=== PATIENT | female | born 1995 | race Caucasian/White ===

== ENCOUNTER 2017-10-22 00:45 | Inpatient (IN) | payer OTHER ==
[~2017-10-22] VITALS: Ht 160 cm; Wt 50.0 kg
[~2017-10-22 00:45] MED LIST: CEPH500 PO; CIPR500 PO; CLON.5 PO; CLON1 PO; ESCI5 PO; HYDACE5 PO; IBUP600 PO; IBUP800 PO; Indomethacin50 MG PO; MEDR150I IM; METERG.2 PO; MULVITMINE PO; Macrobid 100 M100 MG PO; NAPR500 PO; Naprosyn500 MG PO; OXYACE5T PO; PROM25 PO; Percocet 5-3251 EACH PO; RXHYDACE PO; RXOXYACE PO; RXPROM25 PO; SULTRIDS PO; TRAM50 PO; Ultram50 MG PO; Verotin-Gr Cap1 EACH PO; Zofran Odt4 MG PO
[2017-10-22 01:16] LABS: BASOPHILS ABSOLUTE AUTO 0.03 K/mm3 (0.00-0.23); BASOPHILS PERCENT AUTO 0 % (0-2); EOSINOPHILS ABSOLUTE AUTO 0.11 K/mm3 (0.00-0.68); EOSINOPHILS PERCENT AUTO 1 % (0-6); Hematocrit 36.4 % (33.0-51.0); Hemoglobin 12.3 g/dL (11.5-16.0); IMMATURE GRAN ABSOLUTE AUTO 0.11 K/mm3 (0.00-0.10); IMMATURE GRAN PERCENT AUTO 1 % (0-1); LYMPHOCYTES ABSOLUTE AUTO 2.08 K/mm3 (0.84-5.20); LYMPHOCYTES PERCENT AUTO 13 % (21-46); MONOCYTES ABSOLUTE AUTO 1.08 K/mm3 (0.16-1.47); MONOCYTES PERCENT AUTO 7 % (4-13); Mean Corpuscular HGB 31.5 pg (26.0-34.0); Mean Corpuscular HGB Conc 33.8 g/dL (31.5-36.5); Mean Corpuscular Volume 93 fL (80-100); Mean Platelet Volume 9.9 fL (9.1-12.4); NEUTROPHILS ABSOLUTE AUTO 13.22 K/mm3 (1.96-9.15); NEUTROPHILS PERCENT AUTO 79 % (41-73); Platelet Count 260 K/mm3 (150-400); RDW Coefficient Variation 14.5 % (11.7-14.2); RDW Standard Deviation 49.1 fL (35.1-46.3); Red Blood Cell Count 3.91 M/mm3 (3.80-5.20); White Blood Cell Count 16.63 K/mm3 (4.00-11.30)
[2017-10-23 06:19] LABS: BASOPHILS ABSOLUTE AUTO 0.02 K/mm3 (0.00-0.23); BASOPHILS PERCENT AUTO 0 % (0-2); EOSINOPHILS ABSOLUTE AUTO 0.19 K/mm3 (0.00-0.68); EOSINOPHILS PERCENT AUTO 2 % (0-6); Hematocrit 34.8 % (33.0-51.0); Hemoglobin 11.7 g/dL (11.5-16.0); IMMATURE GRAN ABSOLUTE AUTO 0.09 K/mm3 (0.00-0.10); IMMATURE GRAN PERCENT AUTO 1 % (0-1); LYMPHOCYTES PERCENT AUTO 18 % (21-46); MONOCYTES ABSOLUTE AUTO 1.06 K/mm3 (0.16-1.47); MONOCYTES PERCENT AUTO 8 % (4-13); Mean Corpuscular HGB 31.5 pg (26.0-34.0); Mean Corpuscular HGB Conc 33.6 g/dL (31.5-36.5); Mean Corpuscular Volume 94 fL (80-100); Mean Platelet Volume 9.9 fL (9.1-12.4); NEUTROPHILS ABSOLUTE AUTO 9.41 K/mm3 (1.96-9.15); NEUTROPHILS PERCENT AUTO 72 % (41-73); Platelet Count 217 K/mm3 (150-400); RDW Coefficient Variation 14.6 % (11.7-14.2); RDW Standard Deviation 50.2 fL (35.1-46.3); Red Blood Cell Count 3.72 M/mm3 (3.80-5.20); White Blood Cell Count 13.07 K/mm3 (4.00-11.30)
== END 2017-10-23 23:43 | disposition home or self-care (01) | DRG 775 ==
LOC: OBS 00:45 → BC 01:01
PROVIDERS: Obstetrics & Gynecology
PROC: 10E0XZZ Delivery of Products of Conception, External Approach (ICD-10-PCS; principal; 2017-10-22)
DX: O48.0 Post-term pregnancy (principal); Z37.0 Single live birth; Z3A.41 41 weeks gestation of pregnancy
CPT/HCPCS: 36415; 85025; J0290; J1885; J2210; J2590; J3010; J7120

== ENCOUNTER 2018-07-17 17:44 | Emergency (ER) | payer OTHER ==
[~2018-07-17] VITALS: Ht 160 cm; Wt 49.9 kg
== END 2018-07-17 19:33 | disposition home or self-care (01) ==
LOC: ER 17:44
DX: M54.5 Low back pain (principal); F17.210 Nicotine dependence, cigarettes, uncomplicated
CPT/HCPCS: 72100; 99283-25

== ENCOUNTER 2019-01-25 18:19 | Emergency (ER) | payer OTHER ==
[~2019-01-25] VITALS: Ht 160 cm; Wt 54.4 kg
[~2019-01-25 18:19] MED LIST changes: +CEPH500
[2019-01-25 19:15] LABS: BASOPHILS ABSOLUTE AUTO 0.04 K/mm3 (0.00-0.23); BASOPHILS PERCENT AUTO 0 % (0-2); EOSINOPHILS ABSOLUTE AUTO 0.24 K/mm3 (0.00-0.68); EOSINOPHILS PERCENT AUTO 2 % (0-6); Hematocrit 39.6 % (33.0-51.0); Hemoglobin 13.3 g/dL (11.5-16.0); IMMATURE GRAN ABSOLUTE AUTO 0.04 K/mm3 (0.00-0.10); IMMATURE GRAN PERCENT AUTO 0 % (0-1); LYMPHOCYTES ABSOLUTE AUTO 2.52 K/mm3 (0.84-5.20); LYMPHOCYTES PERCENT AUTO 18 % (21-46); MONOCYTES ABSOLUTE AUTO 0.85 K/mm3 (0.16-1.47); MONOCYTES PERCENT AUTO 6 % (4-13); Mean Corpuscular HGB Conc 33.6 g/dL (31.5-36.5); Mean Corpuscular Volume 95 fL (80-100); Mean Platelet Volume 9.8 fL (9.1-12.4); NEUTROPHILS ABSOLUTE AUTO 10.43 K/mm3 (1.96-9.15); NEUTROPHILS PERCENT AUTO 74 % (41-73); Platelet Count 253 K/mm3 (150-400); RDW Coefficient Variation 13.4 % (11.7-14.2); RDW Standard Deviation 46.6 fL (35.1-46.3); Red Blood Cell Count 4.16 M/mm3 (3.80-5.20); White Blood Cell Count 14.12 K/mm3 (4.00-11.30)
[2019-01-25 19:40] LABS: Source, Urine Clean Catch
[2019-01-25 19:43] LABS: Bilirubin, Urine Neg (Neg); Blood, Urine 2+ (Neg); Glucose Qualitative, Urine Neg (Neg); Ketones, Urine Neg (Neg); Leukocyte Esterase, Urine 1+ (Neg); Nitrite, Urine Neg (Neg); Protein, Urine Neg (Neg); Urobilinogen, Urine NORM (Normal); pH, Urine 6.5 (5.0-8.0)
[2019-01-25 19:51] LABS: Appearance, Urine Clear (Clear); Color, Urine Yellow (P-Yellow)
[2019-01-25 19:52] LABS: Bacteria Mod /hpf; Red Blood Cells, Urine 0-2 /hpf (0-2); Squamous Epithelial Cells Few /hpf (Few)
[2019-01-25 20:13] LABS: Alanine Aminotransfer (ALT/SGP 29 U/L (12-78); Albumin/Globulin Ratio 1.1 (0.8-1.8); Alk Phos 59 U/L (50-136); Anion Gap 6 mmol/L (6-16); Aspartate Aminotrans (AST/SGOT 17 U/L (12-37); Bilirubin, Total 0.4 mg/dL (0.1-1.0); Blood Urea Nitrogen 12 mg/dL (8-24); Bun/Creatinine Ratio 19.3 (12.0-20.0); CO2, Blood 24 mmol/L (21-32); Calcium, Blood 8.8 mg/dL (8.5-10.1); Chloride, Blood 105 mmol/L (98-108); Creatinine, Blood 0.62 mg/dL (0.40-1.00); Globulin, Blood 3.6 g/dL (2.2-4.0); Glomerular Filtration Rate >60 (60-); Glucose, Blood 78 mg/dL (70-99); Potassium, Blood 3.6 mmol/L (3.5-5.5); Sodium, Blood 135 mmol/L (136-145); Total Protein, Blood 7.6 g/dL (6.4-8.2)
[2019-01-25] MEDS ORDERED: Verotin-Gr Cap1 EACH PO (21:44)
[2019-01-25] MEDS ORDERED: CEPH500 PO (21:48)
== END 2019-01-25 22:01 | disposition home or self-care (01) ==
LOC: ER 18:19
PROVIDERS: Physician Assistant
DX: O20.9 Hemorrhage in early pregnancy, unspecified (principal); O99.89 Other specified diseases and conditions complicating pregnancy, childbirth and the puerperium; R82.71 Bacteriuria; O99.331 Smoking (tobacco) complicating pregnancy, first trimester; F17.210 Nicotine dependence, cigarettes, uncomplicated; O99.340 Other mental disorders complicating pregnancy, unspecified trimester; F30.9 Manic episode, unspecified; Z3A.10 10 weeks gestation of pregnancy
CPT/HCPCS: 36415; 76801; 80053; 81001; 85025; 86900; 86901; 87077; 87086; 87186; 99284-25

== ENCOUNTER 2019-05-11 01:29 | Inpatient (IN) | payer OTHER ==
[~2019-05-11] VITALS: Ht 160 cm; Wt 64.5 kg
[2019-05-11 02:04] LABS: BASOPHILS ABSOLUTE AUTO 0.04 K/mm3 (0.00-0.23); BASOPHILS PERCENT AUTO 0 % (0-2); EOSINOPHILS ABSOLUTE AUTO 0.15 K/mm3 (0.00-0.68); EOSINOPHILS PERCENT AUTO 1 % (0-6); Hematocrit 37.8 % (33.0-51.0); Hemoglobin 12.9 g/dL (11.5-16.0); IMMATURE GRAN ABSOLUTE AUTO 0.05 K/mm3 (0.00-0.10); IMMATURE GRAN PERCENT AUTO 0 % (0-1); LYMPHOCYTES ABSOLUTE AUTO 3.13 K/mm3 (0.84-5.20); LYMPHOCYTES PERCENT AUTO 20 % (21-46); MONOCYTES ABSOLUTE AUTO 0.81 K/mm3 (0.16-1.47); MONOCYTES PERCENT AUTO 5 % (4-13); Mean Corpuscular HGB 33.3 pg (26.0-34.0); Mean Corpuscular HGB Conc 34.1 g/dL (31.5-36.5); Mean Corpuscular Volume 98 fL (80-100); NEUTROPHILS ABSOLUTE AUTO 11.49 K/mm3 (1.96-9.15); NEUTROPHILS PERCENT AUTO 73 % (41-73); Platelet Count 230 K/mm3 (150-400); RDW Coefficient Variation 12.8 % (11.7-14.2); RDW Standard Deviation 45.4 fL (35.1-46.3); Red Blood Cell Count 3.87 M/mm3 (3.80-5.20); White Blood Cell Count 15.67 K/mm3 (4.00-11.30)
[2019-05-11 02:22] LABS: Alanine Aminotransfer (ALT/SGP 21 U/L (12-78); Albumin, Blood 3.3 g/dL (3.4-5.0); Albumin/Globulin Ratio 0.8 (0.8-1.8); Alk Phos 77 U/L (50-136); Anion Gap 7 mmol/L (6-16); Aspartate Aminotrans (AST/SGOT 19 U/L (12-37); Bilirubin, Total 0.3 mg/dL (0.1-1.0); Blood Urea Nitrogen 15 mg/dL (8-24); Bun/Creatinine Ratio 25.7 (12.0-20.0); CO2, Blood 24 mmol/L (21-32); Calcium, Blood 8.2 mg/dL (8.5-10.1); Chloride, Blood 107 mmol/L (98-108); Creatinine, Blood 0.58 mg/dL (0.40-1.00); Globulin, Blood 3.9 g/dL (2.2-4.0); Glomerular Filtration Rate >60 (60-); Glucose, Blood 91 mg/dL (70-99); Potassium, Blood 3.4 mmol/L (3.5-5.5); Sodium, Blood 138 mmol/L (136-145); Total Protein, Blood 7.2 g/dL (6.4-8.2)
[2019-05-11 04:04] LABS: Source, Urine Clean Catch
[2019-05-11 04:07] LABS: Bilirubin, Urine Neg (Neg); Blood, Urine 2+ (Neg); Glucose Qualitative, Urine Neg (Neg); Ketones, Urine 2+ (Neg); Leukocyte Esterase, Urine 3+ (Neg); Nitrite, Urine Neg (Neg); Protein, Urine 2+ (Neg); Urobilinogen, Urine NORM (Normal); pH, Urine 6.5 (5.0-8.0)
[2019-05-11 04:08] LABS: Appearance, Urine Hazy (Clear); Color, Urine Yellow (P-Yellow)
[2019-05-11 04:16] LABS: Bacteria Mod /hpf; Squamous Epithelial Cells Mod /hpf (Few); White Blood Cells, Urine TNTC /hpf (0-5)
[2019-05-11 04:17] LABS: Calcium Oxalate Crystals Rare /hpf
--- NOTE | 2019-05-11 11:54 | NUR ---
PT REQUESTS TO GO OUTSIDE TO SMOKE. RN EXPLAINED TO PT THAT SHE IS ON A OIL FIELD LABORER AND SHE IS ON A NICOTINE PATCH. 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 RN TOLD PT THAT SHE WOULD TALK WITH PROVIDER. RN SPOKE WITH CLINICAL COORDINATER, PRIVATE BRANCH EXCHANGE REPAIRER AND PROVIDER. ALL OK'D RN TO HAVE PT FILLOUT AMA FORM. AMA FORM SIGNED BY RN AND PT, OIL FIELD LABORER AND LR STOPPED. PT OUTSIDE TO SMOKE AND RETURNED SHORTLY AFTERWARDS.
--- NOTE | 2019-05-11 18:00 | NUR ---
PATIENT IN AND OUT OF ROOM TO GO OUTSIDE SEVERAL TIMES TODAY TO GO SMOKE. RN CONTINUES TO EXPLAIN TO PT THROUGHOUT THE DAY ABOUT THE IMPORTANCE OF REMAINING CONNECTED TO HER TERRITORY BUSINESS MANAGER TO CONTINUE TO BE ABLE TO USE HER BUTTON TO HER TERRITORY BUSINESS MANAGER TO TREAT PAIN. PT CONTINIES TO RATE PAIN 7-10/10 ALL DAY. PT REPORTS THAT SHE GET MUCH RELIEF WITH TERRITORY BUSINESS MANAGER. RN HAD TO CONTINUALLY TELL PT TO USE HER BUTTON IF SHE WAS HAVING PAIN TO HELP DECREASE PAIN LEVEL. RN REPEATEDLY EXPLAINED TO PT IMPORTANCE OF REMAINING CONNECTED TO MEDICATIONS TO KEEP FLUIDS PUSHING THROUGH AND TO HELP KEEP PAIN LEVELS LOW.
[2019-05-12 05:47] LABS: BASOPHILS ABSOLUTE AUTO 0.02 K/mm3 (0.00-0.23); BASOPHILS PERCENT AUTO 0 % (0-2); EOSINOPHILS ABSOLUTE AUTO 0.02 K/mm3 (0.00-0.68); EOSINOPHILS PERCENT AUTO 0 % (0-6); Hematocrit 35.5 % (33.0-51.0); IMMATURE GRAN ABSOLUTE AUTO 0.05 K/mm3 (0.00-0.10); IMMATURE GRAN PERCENT AUTO 0 % (0-1); LYMPHOCYTES ABSOLUTE AUTO 1.17 K/mm3 (0.84-5.20); LYMPHOCYTES PERCENT AUTO 9 % (21-46); MONOCYTES PERCENT AUTO 6 % (4-13); Mean Corpuscular HGB 33.7 pg (26.0-34.0); Mean Corpuscular HGB Conc 33.8 g/dL (31.5-36.5); Mean Corpuscular Volume 100 fL (80-100); Mean Platelet Volume 9.7 fL (9.1-12.4); NEUTROPHILS ABSOLUTE AUTO 10.78 K/mm3 (1.96-9.15); NEUTROPHILS PERCENT AUTO 84 % (41-73); Platelet Count 216 K/mm3 (150-400); RDW Coefficient Variation 12.8 % (11.7-14.2); RDW Standard Deviation 46.8 fL (35.1-46.3); Red Blood Cell Count 3.56 M/mm3 (3.80-5.20); White Blood Cell Count 12.84 K/mm3 (4.00-11.30)
[2019-05-12 06:09] LABS: Alanine Aminotransfer (ALT/SGP 16 U/L (12-78); Albumin, Blood 2.8 g/dL (3.4-5.0); Albumin/Globulin Ratio 0.8 (0.8-1.8); Alk Phos 72 U/L (50-136); Anion Gap 5 mmol/L (6-16); Aspartate Aminotrans (AST/SGOT 16 U/L (12-37); Bilirubin, Total 0.3 mg/dL (0.1-1.0); Blood Urea Nitrogen 15 mg/dL (8-24); Bun/Creatinine Ratio 16.1 (12.0-20.0); CO2, Blood 28 mmol/L (21-32); Calcium, Blood 8.4 mg/dL (8.5-10.1); Chloride, Blood 105 mmol/L (98-108); Creatinine, Blood 0.93 mg/dL (0.40-1.00); Globulin, Blood 3.7 g/dL (2.2-4.0); Glomerular Filtration Rate >60 (60-); Glucose, Blood 103 mg/dL (70-99); Potassium, Blood 3.6 mmol/L (3.5-5.5); Sodium, Blood 138 mmol/L (136-145); Total Protein, Blood 6.5 g/dL (6.4-8.2)
--- NOTE | 2019-05-12 06:32 | NUR ---
LAWN MOWER SETTINGS CHANGED PER DR. ROMAN W/ [place], MANJINDER TO CONFIRM. ROXICODONE ALSO GIVEN PER DR. ROMAN FOR BREAKTHROUGH. AFTER ADMINISTRATION PT IMMEDIATLY ASKED TO GO OUT AND SMOKE. SHE WAS ENCOURAGED IT WOULD BE SAFER TO STAY IN HER ROOM AT THIS TIME. PT ADAMANT ON GOING OUT TO SMOKE AGAIN.
--- NOTE | 2019-05-13 01:23 | NUR ---
PT OXYGEN DROPPING INTO THE 80'S WHEN SOUND ASLEEP. PT IS EASILY AROUSABLE FROM SLEEP AND FOLLOWS DIRECTIONS. 1L OXYGEN VIA NC APPLIED WHILE PT IS SLEEPING.
--- NOTE | 2019-05-13 07:45 | NUR ---
LESIA MEZA, VERIFIED WITH CHARGE MANJINDER MENEZES.
--- NOTE | 2019-05-13 08:07 | NUR ---
PT REQUESTING TO GO OUT AND SMOKE. FLUIDS DISCONNECTED.
--- NOTE | 2019-05-13 08:29 | NUR ---
PT BACK ON ROOM.
--- NOTE | 2019-05-13 09:39 | NUR ---
pt requesting to go out and smoke.
--- NOTE | 2019-05-13 10:01 | NUR ---
PT BACK IN ROOM.
--- NOTE | 2019-05-13 10:30 | NUR ---
LATE ENTRY: PT UPSET ABOUT BEING TOLD THAT SHE COULD NOT GO OUTSIDE TO SMOKE AFTER DILAUDID SCREW DRIVER OPERATOR WAS STARTED. PT ROCKING BACK AND FOURTH YELLING AT RN TELLING RN "I AM HAVE MANIC ANXIETY AND DEPRESSION" "I NEED TO SMOKE TO HELP WITH MY ANXIETY". RN EXPLAINED WHY WE DO NOT LIKE TO LET PTS GO OUTSIDE AFTER STARTING SCREW DRIVER OPERATOR. RN SPOKE WITH BOILER ATTENDANT AND CLINICAL COORDINATOR. AMA FORM WAS SIGNED AND PT ALLOWED TO GO OUTSIDE.
--- NOTE | 2019-05-13 10:34 | NUR ---
PT REQUESTED TO GO OUTSIDE. LINEN CHANGED AND HOUSEKEEPING IN ROOM CLEANING FLOOR TO REMOVE ALL BARK MULCH. REQUESTING PT WEAR SHOES OUTSIDE BUT IF REFUSING TO WEAR THEM, TRACKING IN BARK MULCH EACH TIME SHE GOES IN AND OUT TO SMOKE.
[2019-05-13 15:49] LABS: Alanine Aminotransfer (ALT/SGP 14 U/L (12-78); Albumin, Blood 2.8 g/dL (3.4-5.0); Albumin/Globulin Ratio 0.8 (0.8-1.8); Alk Phos 72 U/L (50-136); Anion Gap 2 mmol/L (6-16); Aspartate Aminotrans (AST/SGOT 19 U/L (12-37); Bilirubin, Total 0.2 mg/dL (0.1-1.0); Blood Urea Nitrogen 8 mg/dL (8-24); Bun/Creatinine Ratio 11.4 (12.0-20.0); CO2, Blood 30 mmol/L (21-32); Calcium, Blood 8.9 mg/dL (8.5-10.1); Chloride, Blood 104 mmol/L (98-108); Globulin, Blood 3.7 g/dL (2.2-4.0); Glomerular Filtration Rate >60 (60-); Glucose, Blood 93 mg/dL (70-99); Potassium, Blood 3.6 mmol/L (3.5-5.5); Sodium, Blood 136 mmol/L (136-145); Total Protein, Blood 6.5 g/dL (6.4-8.2)
--- NOTE | 2019-05-13 18:00 | NUR ---
PT CONTINUES TO GO IN AND OUT TO SMOKE. RN CONTINUES TO EXPLAIN THE IMPORTNACE OF STAYING CONNECTED TO IV FLUIDS AND PAIN MEDICATION. WONDERLY ROUNDED ON PT TODAY AT 1100. NO MANAGER E LEARNING PUMP SETTINGS CHANGED BUT OKAY'D FOR ORAL PAIN MEDICATION. PT CONTINUES TO RATE HER PAIN -05/17. PT REQUESTS ZOFRAN WITH HER PO PAIN MEDICATION TO HELP HER KEEP FROM PUKING. PT PUKING CONTINUOUSLY ON 05-11-19, TODAY PT DOESNT SEEM TO BE VOMITTING MUCH. TODAY PT SPOKE WITH HER SO ON THE PHONE, PT YELLING AT HIM ON THE PHONE. PT WAS CRYING AND TOLD RN THAT HER SO "JUST DOESNT UNDERSTAND HOW SENSETIVE I AM" CONTINUES TO STATE THAT "HE SAYS I AM INCONVENIENCING HIM BY BEING SICK"
[2019-05-14 05:29] LABS: BASOPHILS ABSOLUTE AUTO 0.02 K/mm3 (0.00-0.23); BASOPHILS PERCENT AUTO 0 % (0-2); EOSINOPHILS ABSOLUTE AUTO 0.16 K/mm3 (0.00-0.68); EOSINOPHILS PERCENT AUTO 2 % (0-6); Hematocrit 28.8 % (33.0-51.0); Hemoglobin 9.6 g/dL (11.5-16.0); IMMATURE GRAN ABSOLUTE AUTO 0.02 K/mm3 (0.00-0.10); IMMATURE GRAN PERCENT AUTO 0 % (0-1); LYMPHOCYTES PERCENT AUTO 25 % (21-46); MONOCYTES ABSOLUTE AUTO 0.56 K/mm3 (0.16-1.47); MONOCYTES PERCENT AUTO 8 % (4-13); Mean Corpuscular HGB 33.8 pg (26.0-34.0); Mean Corpuscular HGB Conc 33.3 g/dL (31.5-36.5); Mean Corpuscular Volume 101 fL (80-100); Mean Platelet Volume 9.9 fL (9.1-12.4); NEUTROPHILS ABSOLUTE AUTO 4.82 K/mm3 (1.96-9.15); NEUTROPHILS PERCENT AUTO 64 % (41-73); Platelet Count 185 K/mm3 (150-400); RDW Coefficient Variation 12.8 % (11.7-14.2); RDW Standard Deviation 47.8 fL (35.1-46.3); Red Blood Cell Count 2.84 M/mm3 (3.80-5.20); White Blood Cell Count 7.48 K/mm3 (4.00-11.30)
--- NOTE | 2019-05-14 13:15 | NUR ---
4720 SPOKE WITH CHRIS THE PATIENT ADVOCATE AFTER HER MEETING WITH EVANS. THE ADVOCATE STATES THAT SHE DIDN'T UNDERSTAND WHY THE NEW DOCTOR CHANGED ALL OF EVANS'S MEDICATIONS WHEN SHE HAD BEEN COMFORTABLE YESTERDAY (PER THE PATIENT). THE ADVOCATE STATED THAT THIS HAPPENS ALL THE TIME UPSTAIRS WHEN THEY CHANGE HOSPITALISTS AND THAT IT IS FRUSTRATING FOR THE PATIENT. CHRIS ASKED ME THE PROCESS OF WHETHER SHE SHOULD TALK TO DR KIMBROUGH OR IF I NORMALLY DO IT. I STATED THAT I WOULD TALK WITH DR KIMBROUGH ABOUT THE PATIENTS CONCERNS AND CHRIS STATED WHE WOULD BE AVAILABLE FOR THE REMAINDER OF THE DAY IF THE PATIENT NEEDED FURTHER SUPPORT
--- NOTE | 2019-05-14 14:20 | NUR ---
AROUND 1100 RN WAS ASKED BY CHARGE NURSE TO TRY AND RESTART PT IV. RN TRIED 3 TIMES TO START A IV WITH NO SUCCESS. DURING THIS TIME PT WAS CONVERSING WITH RN ABOUT HER DIS-SATISFACTION ABOUT HOW HER CARE HAS CHANGED. SHE WAS MAD THAT DOCTOR KIMBROUGH CAME IN AND CHANGED ALL THE MEDICATION THAT DR. ROMAN HAD HER ON. SHE STATED THAT HER PAIN IS SO BAD AND SHE DOESNT UNDERSTAND WHY DR ROMAN HAD HER ON ORAL AND IV PAIN MEDICATION AND NOW DR. KIMBROUGH HAS TAKEN THAT AWAY. RN STATED TO PT THAT THE REASON THAT HAPPENED IS THAT A PATIENT CANNOT GO HOME ON IV PAIN MEDICATION. SHE STATED TEARFUL AND WITH A RAISED VOICE THAT SHE DOESNT WANT TO GO HOME UNTIL THIS STONE IS PASSED AND SHE IS NO LONGER IN PAIN. SHE THEN TOLD THE RN THAT THE CHARGE NURSE WAS CALLING PT ADVOCATE FOR HER BECAUSE THAT IS WHAT HER MOTHER TOLD HER TO DO. RN TOLD HER THAT WAS GOOD BEACUSE THEY WOULD BE ABLE TO HELP DEFUSE THE SITIUATION AND HOPEFULLY FIND A SOLUTION. SHE THEN TOLD THE RN THAT SHE GOODLED DR. 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 RN STATES THAT TO HER KNOWLEGE DR. KIMBROUGH DOESNT HAVE LAWSUITS THAT SHE KNOWS OF AND HAS SEEN HER BE VERY COMPATENT IN HER FIELD OF WORK. PT STATED "THAN WHY IS SHE DOING THIS TO ME! SHE WANTS ME TO TAKE MEDICATION THAT WILL DILATE MY KIDNEYS AND HARM MY BABY!" RN STATES THAT SHE IS UNFAMILAR WITH HER CHART OR THE MEDICATIONS SCHEDULED BUT THAT PT ADVOCATE WILL HELP RESOLVE THESE PROBLEMS, AND THAT SOMETIMES CERTAIN PEOPLES (DOCTOR TO PATIENT) PERSONALITIES DONT MESH UP AND THAT HOPEFULLY THERE CAN BE A RESOLUTION FOUND IN THIS SITUATION AND WE WILL WORK BEHIND THE SENCES TO TRY TO FIND A RESOLUTION
--- NOTE | 2019-05-14 15:24 | NUR ---
0900: PT CONTINUES TO GO OUTSIDE TO SMOKE CONTINUOUSLY. RN AGAIN EXPLAINED THE IMPORTNACE OF CONTINUING TO STAY CONNECTED TO IV FLUIDS AND PAIN MEDICATIONS 0940: DR KIMBROUGH AT BEDSIDE. EXPLAINING THE PLAN FOR THE DAY WITH MEDICATIONS AND THAT THE BILLING ADJUDICATOR WILL BE STOPPED AND THAT SHE WILL HAVE US CONTINUE WITH THE ROXICODONE. DR KIMBROUGH ADDED ADDITION PAIN MEDICATIONS. SEE EMAR. PT VERY TEARFUL AND UPSET ABOUT "ALL OF HER MEDICATIONS BEING CHANGED" 1000: RN REMOVING BILLING ADJUDICATOR AND BAG. PT STATES THAT SHE "GOOGDLED DR KIMBROUGH AND SHE IS RESPONSIBLE FOR KILLING BABIES AND HAS A LOT OF LAWSUITS AGAINST HER" PT CONTINIES TO STATE "I SPOKE WITH MY MOM AND SHE TOLD ME TO CALL THE PT ADVOCATE". RN EXPLAINED TO PT THAT DR KIMBROUGH IS GOOD AND COMPETENT PHYSICIAN, RN CONTINUES TO TELL HER THAT SHE WAS UNAWARE OF ANY LAWSIUTS AGAINST DR KIMBROUGH AND THAT SHE CANNOT BELIEVE EVERYTHING SHE READS ON THE INTERNET AND THAT JUST BECAUSE THAT IS SOMEONES INTERPRETATION OF WHAT HAPPENED DOES NOT MEAN IT IS FACT OF AN INCIDENT. PT CRYING AND GOES OUTSIDE TO SMOKE. 1230: PT CALLED THE PT ADVOCATE. PT STATES THAT THE PT ADVOCATE CAME TO SEE HER IN HER ROOM. PT STATES THAT THE PATIENT ADVOCATE, CHRIS ALCANTAR, TOLD HER THAT "IT WASN'T RIGHT FOR DR KIMBROUGH TO STOP ALL OF YOUR MEDICATIONS IF THAT WAS WORKING", SHE ALSO STATES THAT THE PATIENT ADVOCATE TOLD HER THAT RIRI DUNBAR SAID SHE WOULD SPEAK WITH DR. KIMBROUGH AND "WOULDN'T LET HER TALK TO DR KIMBROUGH'. DR KIMBROUGH CALLED TO PTS ROOM TO SPEAK WITH PT. PT TALKING LOWDLY AND CRYING. PT STATES TO DR KIMBROUGH "I'VE BEEN TOLD BY NURSES AND OTHER PEOPLE THAT I NEED TO BE VERY FIRM WITH YOU". RN ASKED WHAT NURSES AND THE PT STATES SHE "PROMISED THE NURSES SHE WOULDN'T TELL ANYONE WHO SAID THAT". PT CONTINUES TO LOUDLY CRY AND TALK TO DR KIMBROUGH AND STATES "I WAS FINE AND FEELING BETTER UNTIL I MET YOU". DR KIMBROUGH EXPLAINS TO THE PT THAT THE ONLY THING THAT SHE CHANGED WITH HER MEDICATIONS WAS TURNING OFF THE BILLING ADJUDICATOR. WHEN PT QUESTIONS WHY THE FLUIDS WERE DECREASED RN EXPLAINED TO HER THAT DR ROMAN ORDERED THAT NOT DR KIMBROUGH. PT CONTINUES TO BE VERY TEARFUL. 1330: PT OFFERED FLOWMAX TO HELP OPEN THE URETER TO HELP KIDNEY STONE PASS. PT DECLINES MEDICATION. STATES "I DONT WANT TO HURT THE BABY, I AM GOING TO CALL DR ROMAN AND I DONT WANT TO TAKE THAT MEDICATION UNTIL I HAVE TALKED TO HIM BECAUSE HE TOLD ME THAT WASNT OK TO TAKE WHILE ". PT CONTINUES TO CRY AND STATES "DR ROMAN TOLD ME I WOULD BE ON IV AND ORAL MEDICATIONS FOR 7 DAYS, I DONT UNDERSTAND WHY SHE (DR KIMBROUGH) IS CHANGING EVERYTHING". RN AGAIN EXPLAINED SHE ONLY STOPPED HER BILLING ADJUDICATOR AND ADDED A COUPLE OTHER MEDICATIONS, ORAL PAIN MEDICATIONS REMAIN THE SAME. 1400: ULTRASOUND AT BEDSIDE 1530: CHRIS SERRANO, PATIENT ADVOCATE CAME TO TALK WITH RN, RN EXPLAINED TO HER TO THAT THE PT REPORTS SHE TOLD THEM THAT THE MEDICATIONS SHOULD HAVE NOT BEEN CHANGED IF THAT WAS WORKDING FOR HER. PATIENT ALANIS DENIES SAYING THAT. STATES SHE WILL COME BACK AND TALK WITH PT TOMORROW AT SOME POINT.
--- NOTE | 2019-05-14 19:25 | NUR ---
report from erasmo lopez rn. pt not in room at this time.
--- NOTE | 2019-05-14 20:07 | NUR ---
pt tearful in room and states she was due for her medications at 1815 but she was trying to keep herself preoccupied because she knows that we are busy delivering babies. pt went outside to smoke and was not in room initially. as soon as she came back from smoking she was frantic and saying that she needed her iv pain medication, oral pain medication, nausea medicine and anxiety medicine. 10 mg oxycodone given with zofran as well as vistaril, pt complained that I did not give her her IV dilaudid, however I told her that we would evaluate how the oral pain medication worked with her anxiety medication. I stated that I did not want to bottom her out and that the iv dilaudid along with the other medication together can make her very sleepy. She became very irritated and said she would give it 15 minutes for it to kick in. I then told her that I would like to give her and her baby safe care and that I would like to keep her comfortable but keep her safe at the same time. Pt tearful and thanks me, however very defensive.
--- NOTE | 2019-05-14 20:32 | NUR ---
Pt out to smoke and get "her baby daddy." this RN advised pt to stay in bed to try to sleep and stay down however she states that she would when she gets back and "thats what the anxiety medication is for and how I got behind on my medication the night before because no one woke her up to give her pain medication." Pt states she needs her IV pain medication and oral medication on time so she does not have any pain. I had a conversation with her that until the stone passes the patient needs to have a realistic idea of what her pain will be and that we would like her to be comfortable but that she will not be pain FREE. Pt states she understands and has a realstic idea of what it should be and that she should have her continous medication like Dr. Matute had prescribed. She states she is very unahppy with Dr. Maher care and she has heard nothing but bad things. I told her that Dr. Rasmussen is a very competent provider and provides great care. Pt laughs and states " well thats good to hear because multiple of my friends have lawsuits against her."
--- NOTE | 2019-05-14 20:56 | NUR ---
PT BACK IN ROOM, RECONNECTED TO FLUIDS. ADVISED TO TRY TO GET SOME SLEEP. YOGURT, GINGERALE AND HOT WATER GIVEN FOR TEA.
--- NOTE | 2019-05-14 21:59 | NUR ---
pt out to smoke and see her . pt saline locked.
--- NOTE | 2019-05-14 23:20 | NUR ---
2350: pt back to room with . reconnected to iv fluids.
--- NOTE | 2019-05-14 23:40 | NUR ---
1930: fhts in 180s, pt states she just smoked, will doppler again in a little while to see if babys heart rate has come down.
--- NOTE | 2019-05-14 23:41 | NUR ---
1 liter of oxygen applied via nc due to pt's oxygen saturation level at 92%. pt states she is going to try to go to sleep.
--- NOTE | 2019-05-15 05:31 | NUR ---
Pt has not called and is sound asleep snoring.
--- NOTE | 2019-05-15 06:28 | NUR ---
0620- pt out to smoke after being advised not to after giving oxycodone and dilaudid.
--- NOTE | 2019-05-15 07:39 | NUR ---
pt in shower, denied needing any towels. changed her bed, emptied trash and linen. pt back from smoking at 0720, iv sl wrapped for shower. at 0739 asked pt thru door to notify rn when pt ready for vs and listening to baby. breakfast at bedside
--- NOTE | 2019-05-15 08:15 | NUR ---
pt was given a paper to get her scripts filled at [facility] from house painting instructor. pt doesnt have insurance and has no way to pay for her scripts. pt was given scripts for keflex, zofran, vistril, and percocet, house painting instructor reports they dont fill pain meds, but put it on there due to pt having documented kidney stone and pain. pt is working on getting ahold of family for a ride home. if unable to will get pt a taxi ride.
[2019-05-15 08:53] LABS: BASOPHILS ABSOLUTE AUTO 0.02 K/mm3 (0.00-0.23); BASOPHILS PERCENT AUTO 0 % (0-2); EOSINOPHILS ABSOLUTE AUTO 0.13 K/mm3 (0.00-0.68); EOSINOPHILS PERCENT AUTO 1 % (0-6); Hematocrit 32.4 % (33.0-51.0); Hemoglobin 10.8 g/dL (11.5-16.0); IMMATURE GRAN ABSOLUTE AUTO 0.03 K/mm3 (0.00-0.10); IMMATURE GRAN PERCENT AUTO 0 % (0-1); LYMPHOCYTES ABSOLUTE AUTO 1.52 K/mm3 (0.84-5.20); LYMPHOCYTES PERCENT AUTO 17 % (21-46); MONOCYTES ABSOLUTE AUTO 0.61 K/mm3 (0.16-1.47); MONOCYTES PERCENT AUTO 7 % (4-13); Mean Corpuscular HGB 33.3 pg (26.0-34.0); Mean Corpuscular HGB Conc 33.3 g/dL (31.5-36.5); Mean Corpuscular Volume 100 fL (80-100); Mean Platelet Volume 10.2 fL (9.1-12.4); NEUTROPHILS ABSOLUTE AUTO 6.91 K/mm3 (1.96-9.15); NEUTROPHILS PERCENT AUTO 75 % (41-73); Platelet Count 231 K/mm3 (150-400); RDW Coefficient Variation 12.6 % (11.7-14.2); RDW Standard Deviation 46.7 fL (35.1-46.3); Red Blood Cell Count 3.24 M/mm3 (3.80-5.20); White Blood Cell Count 9.22 K/mm3 (4.00-11.30)
[2019-05-15] MEDS ORDERED: Percocet 5-3251 EACH PO (09:16)
[2019-05-15] MEDS ORDERED: ONDA4ODT MM (09:17)
[2019-05-15] MEDS ORDERED: HYDPAM25 PO (09:17)
--- NOTE | 2019-05-15 09:23 | NUR ---
DISCHARGE ORDER DIDNT COME THRU TO [facility], CALLED DR KIMBROUGH TO VERIFY THAT PT WAS TO BE DISCHARGED, GOT A TELEPHONE ORDER,
--- NOTE | 2019-05-15 09:53 | NUR ---
PATIENT CAME TO DESK ASKED FOR A COUPON FOR THE [place]FET[place]. PATIENT IS NOW HEADING OVER TO THE [place]
--- NOTE | 2019-05-15 10:12 | NUR ---
1012 DC TEACHING DONE OUT BY [employer]. PT VERBALIZED OK TO DO DISCHARGE TEACHING THERE. VERBALIZED UNDERSTANDING, QUESTIONS ANSWERED, PT HAS [employer] NUMBER TO CALL WITH QUESTIONS. AT 1010 WENT TO PT ROOM TO FIND OUT HOW HER RIDE SITUATION WAS GOING, PT WANSNT IN ROOM AND HER BAGS WERE GONE. FOUND PT OUT BY [employer]. PT THOUGHT HER TEACHING WAS DONE AND HER RIDE WAS ON THE WAY. REPORTS SHE GETS BETTER SERVICE IN THAT AREA FOR HER PAD TO MAKE PHONECALLS THAN IN HER ROOM. OFFERED FOR HER TO GO BACK TO ROOM AND SHE DECLINED, PT REPORTS TRYING TO CALL DR ROMAN OFFICE TO MAKE AN APPOINTMENT. SHE DOESNT LIKE DR KIMBROUGH. ENCOURAGED TO FOLLOW UP IN 1-2 WEEKS WITH AN OB DOCTOR OR ADMINISTRATIVE REPRESENTATIVE
[2019-05-15 10:21] LABS: Anion Gap 6 mmol/L (6-16); Blood Urea Nitrogen 9 mg/dL (8-24); Bun/Creatinine Ratio 12.6 (12.0-20.0); CO2, Blood 29 mmol/L (21-32); Calcium, Blood 9.1 mg/dL (8.5-10.1); Chloride, Blood 106 mmol/L (98-108); Creatinine, Blood 0.72 mg/dL (0.40-1.00); Glomerular Filtration Rate >60 (60-); Glucose, Blood 100 mg/dL (70-99); Potassium, Blood 3.6 mmol/L (3.5-5.5); Sodium, Blood 141 mmol/L (136-145)
== END 2019-05-15 10:10 | disposition home or self-care (01) | DRG 832 ==
LOC: BC 01:29 → OBS 01:29 → BC 09:44 → OBS 09:44 → BC 05-13 14:29
PROVIDERS: Advanced Practice Midwife; Obstetrics & Gynecology; ADMIT Advanced Practice Midwife
DX: O26.832 Pregnancy related renal disease, second trimester (principal); N13.2 Hydronephrosis with renal and ureteral calculous obstruction; O99.332 Smoking (tobacco) complicating pregnancy, second trimester; O99.342 Other mental disorders complicating pregnancy, second trimester; F43.10 Post-traumatic stress disorder, unspecified; Z3A.25 25 weeks gestation of pregnancy; F17.210 Nicotine dependence, cigarettes, uncomplicated
CPT/HCPCS: 36415; 76770; 80048; 80053; 81001; 85025; 87077; 87086; 87186; 96361; 96365; 96366; 96375; 96376; G0378; J0696; J1170; J1885; J2270; J2405; J7120; Q0177

== ENCOUNTER 2019-08-15 06:12 | Inpatient (IN) | payer OTHER ==
[~2019-08-15] VITALS: Ht 160 cm; Wt 69.0 kg
[~2019-08-15 06:12] MED LIST changes: +HYDPAM25 PO; +ONDA4ODT MM
[2019-08-15 06:36] LABS: BASOPHILS ABSOLUTE AUTO 0.02 K/mm3 (0.00-0.23); BASOPHILS PERCENT AUTO 0 % (0-2); EOSINOPHILS ABSOLUTE AUTO 0.18 K/mm3 (0.00-0.68); EOSINOPHILS PERCENT AUTO 2 % (0-6); Hematocrit 37.1 % (33.0-51.0); Hemoglobin 12.4 g/dL (11.5-16.0); IMMATURE GRAN ABSOLUTE AUTO 0.09 K/mm3 (0.00-0.10); IMMATURE GRAN PERCENT AUTO 1 % (0-1); LYMPHOCYTES ABSOLUTE AUTO 2.82 K/mm3 (0.84-5.20); LYMPHOCYTES PERCENT AUTO 26 % (21-46); MONOCYTES PERCENT AUTO 6 % (4-13); Mean Corpuscular HGB 31.3 pg (26.0-34.0); Mean Corpuscular HGB Conc 33.4 g/dL (31.5-36.5); Mean Corpuscular Volume 94 fL (80-100); NEUTROPHILS ABSOLUTE AUTO 6.96 K/mm3 (1.96-9.15); NEUTROPHILS PERCENT AUTO 65 % (41-73); Platelet Count 263 K/mm3 (150-400); RDW Coefficient Variation 12.2 % (11.7-14.2); RDW Standard Deviation 42.5 fL (35.1-46.3); Red Blood Cell Count 3.96 M/mm3 (3.80-5.20); White Blood Cell Count 10.67 K/mm3 (4.00-11.30)
[2019-08-16 05:39] LABS: BASOPHILS ABSOLUTE AUTO 0.01 K/mm3 (0.00-0.23); BASOPHILS PERCENT AUTO 0 % (0-2); EOSINOPHILS ABSOLUTE AUTO 0.13 K/mm3 (0.00-0.68); EOSINOPHILS PERCENT AUTO 1 % (0-6); Hematocrit 40.9 % (33.0-51.0); Hemoglobin 13.3 g/dL (11.5-16.0); IMMATURE GRAN ABSOLUTE AUTO 0.06 K/mm3 (0.00-0.10); IMMATURE GRAN PERCENT AUTO 1 % (0-1); LYMPHOCYTES ABSOLUTE AUTO 1.67 K/mm3 (0.84-5.20); LYMPHOCYTES PERCENT AUTO 13 % (21-46); MONOCYTES PERCENT AUTO 5 % (4-13); Mean Corpuscular HGB 31.1 pg (26.0-34.0); Mean Corpuscular HGB Conc 32.5 g/dL (31.5-36.5); Mean Corpuscular Volume 96 fL (80-100); Mean Platelet Volume 10.2 fL (9.1-12.4); NEUTROPHILS ABSOLUTE AUTO 10.45 K/mm3 (1.96-9.15); NEUTROPHILS PERCENT AUTO 81 % (41-73); Platelet Count 248 K/mm3 (150-400); RDW Coefficient Variation 12.3 % (11.7-14.2); RDW Standard Deviation 43.2 fL (35.1-46.3); Red Blood Cell Count 4.27 M/mm3 (3.80-5.20); White Blood Cell Count 12.92 K/mm3 (4.00-11.30)
[2019-08-16] MEDS ORDERED: IBUP800 PO (12:14)
== END 2019-08-16 12:40 | disposition home or self-care (01) | DRG 807 ==
LOC: BC 06:12
PROVIDERS: ADMIT Obstetrics & Gynecology
PROC: 10E0XZZ Delivery of Products of Conception, External Approach (ICD-10-PCS; principal; 2019-08-15)
PROC: 3E0R3BZ Introduction of Anesthetic Agent into Spinal Canal, Percutaneous Approach (ICD-10-PCS; 2019-08-15)
DX: O13.4 Gestational [pregnancy-induced] hypertension without significant proteinuria, complicating childbirth (principal); Z37.0 Single live birth; O69.81X0 Labor and delivery complicated by cord around neck, without compression, not applicable or unspecified; Z3A.39 39 weeks gestation of pregnancy
CPT/HCPCS: 36415; 51702; 85025; 86850; 86900; 86901; J1885; J2001; J2210; J2405; J2765; J3010; J7120

== ENCOUNTER 2020-03-17 19:00 | Emergency (ER) | payer OTHER ==
[~2020-03-17] VITALS: Ht 160 cm; Wt 49.9 kg
[~2020-03-17 19:00] MED LIST changes: +ALBU90OI INH
[2020-03-17 19:21] LABS: Source, Urine Clean Catch
[2020-03-17 19:22] LABS: BASOPHILS ABSOLUTE AUTO 0.03 K/mm3 (0.00-0.23); BASOPHILS PERCENT AUTO 0 % (0-2); EOSINOPHILS ABSOLUTE AUTO 0.01 K/mm3 (0.00-0.68); EOSINOPHILS PERCENT AUTO 0 % (0-6); Hematocrit 47.5 % (33.0-51.0); Hemoglobin 15.5 g/dL (11.5-16.0); IMMATURE GRAN ABSOLUTE AUTO 0.04 K/mm3 (0.00-0.10); IMMATURE GRAN PERCENT AUTO 0 % (0-1); LYMPHOCYTES ABSOLUTE AUTO 1.71 K/mm3 (0.84-5.20); LYMPHOCYTES PERCENT AUTO 14 % (21-46); MONOCYTES ABSOLUTE AUTO 0.43 K/mm3 (0.16-1.47); MONOCYTES PERCENT AUTO 3 % (4-13); Mean Corpuscular HGB 31.3 pg (26.0-34.0); Mean Corpuscular HGB Conc 32.6 g/dL (31.5-36.5); Mean Corpuscular Volume 96 fL (80-100); Mean Platelet Volume 10.8 fL (9.1-12.4); NEUTROPHILS ABSOLUTE AUTO 10.34 K/mm3 (1.96-9.15); NEUTROPHILS PERCENT AUTO 82 % (41-73); Platelet Count 253 K/mm3 (150-400); RDW Coefficient Variation 13.3 % (11.7-14.2); RDW Standard Deviation 47.7 fL (35.1-46.3); Red Blood Cell Count 4.95 M/mm3 (3.80-5.20); White Blood Cell Count 12.56 K/mm3 (4.00-11.30)
[2020-03-17 19:25] LABS: Appearance, Urine Clear (Clear); Bilirubin, Urine Neg (Neg); Blood, Urine 4+ (Neg); Color, Urine Yellow (P-Yellow); Glucose Qualitative, Urine Neg (Neg); Ketones, Urine Neg (Neg); Leukocyte Esterase, Urine Neg (Neg); Nitrite, Urine Neg (Neg); Protein, Urine Neg (Neg); Urobilinogen, Urine NORM (Normal)
[2020-03-17 19:38] LABS: Alanine Aminotransfer (ALT/SGP 24 U/L (12-78); Albumin, Blood 4.4 g/dL (3.4-5.0); Albumin/Globulin Ratio 1.2 (0.8-1.8); Alk Phos 67 U/L (50-136); Anion Gap 4 mmol/L (6-16); Aspartate Aminotrans (AST/SGOT 15 U/L (12-37); Bilirubin, Total 0.5 mg/dL (0.1-1.0); Blood Urea Nitrogen 12 mg/dL (8-24); Bun/Creatinine Ratio 13.6 (12.0-20.0); CO2, Blood 26 mmol/L (21-32); Calcium, Blood 9.1 mg/dL (8.5-10.1); Chloride, Blood 105 mmol/L (98-108); Creatinine, Blood 0.88 mg/dL (0.40-1.00); Globulin, Blood 3.7 g/dL (2.2-4.0); Glomerular Filtration Rate >60 (60-); Glucose, Blood 94 mg/dL (70-99); Sodium, Blood 135 mmol/L (136-145); Total Protein, Blood 8.1 g/dL (6.4-8.2)
[2020-03-17 19:44] LABS: Bacteria Not Seen /hpf; Red Blood Cells, Urine Not Seen /hpf (0-2); Squamous Epithelial Cells Few /hpf (Few); White Blood Cells, Urine Not Seen /hpf (0-5)
[2020-03-17] MEDS ORDERED: KETO10 PO (21:35)
[2020-03-17] MEDS ORDERED: ONDA4ODT MM (21:35)
[2020-03-17] MEDS ORDERED: Flomax0.4 MG PO (21:35)
== END 2020-03-17 22:12 | disposition home or self-care (01) ==
LOC: ER 19:00
PROVIDERS: Physician Assistant
DX: N13.2 Hydronephrosis with renal and ureteral calculous obstruction (principal); F17.210 Nicotine dependence, cigarettes, uncomplicated
CPT/HCPCS: 36415; 74176; 80053; 81001; 81025; 83690; 85025; 96374; 96375; 96376; 99284-25; A9270; J1885; J2405; J7030

== ENCOUNTER 2020-05-31 04:19 | Emergency (ER) | payer OTHER ==
[~2020-05-31] VITALS: Ht 160 cm; Wt 57.1 kg
[~2020-05-31 04:19] MED LIST changes: +Flomax0.4 MG PO; +KETO10 PO
[2020-05-31 04:42] LABS: BASOPHILS ABSOLUTE AUTO 0.04 K/mm3 (0.00-0.23); BASOPHILS PERCENT AUTO 0 % (0-2); EOSINOPHILS ABSOLUTE AUTO 0.17 K/mm3 (0.00-0.68); EOSINOPHILS PERCENT AUTO 1 % (0-6); Hematocrit 41.3 % (33.0-51.0); Hemoglobin 13.8 g/dL (11.5-16.0); IMMATURE GRAN ABSOLUTE AUTO 0.04 K/mm3 (0.00-0.10); IMMATURE GRAN PERCENT AUTO 0 % (0-1); LYMPHOCYTES ABSOLUTE AUTO 2.28 K/mm3 (0.84-5.20); LYMPHOCYTES PERCENT AUTO 15 % (21-46); MONOCYTES ABSOLUTE AUTO 0.84 K/mm3 (0.16-1.47); MONOCYTES PERCENT AUTO 6 % (4-13); Mean Corpuscular HGB 31.3 pg (26.0-34.0); Mean Corpuscular HGB Conc 33.4 g/dL (31.5-36.5); Mean Corpuscular Volume 94 fL (80-100); Mean Platelet Volume 10.1 fL (9.1-12.4); NEUTROPHILS ABSOLUTE AUTO 11.71 K/mm3 (1.96-9.15); NEUTROPHILS PERCENT AUTO 78 % (41-73); Platelet Count 223 K/mm3 (150-400); RDW Coefficient Variation 12.7 % (11.7-14.2); RDW Standard Deviation 44.2 fL (35.1-46.3); Red Blood Cell Count 4.41 M/mm3 (3.80-5.20); White Blood Cell Count 15.08 K/mm3 (4.00-11.30)
[2020-05-31 05:05] LABS: Alanine Aminotransfer (ALT/SGP 23 U/L (12-78); Albumin, Blood 3.7 g/dL (3.4-5.0); Alk Phos 70 U/L (50-136); Anion Gap 7 mmol/L (6-16); Aspartate Aminotrans (AST/SGOT 23 U/L (12-37); Bilirubin, Total 0.2 mg/dL (0.1-1.0); Blood Urea Nitrogen 28 mg/dL (8-24); Bun/Creatinine Ratio 32.5 (12.0-20.0); CO2, Blood 26 mmol/L (21-32); Calcium, Blood 8.9 mg/dL (8.5-10.1); Chloride, Blood 107 mmol/L (98-108); Creatinine, Blood 0.86 mg/dL (0.40-1.00); Globulin, Blood 3.7 g/dL (2.2-4.0); Glomerular Filtration Rate >60 (60-); Glucose, Blood 98 mg/dL (70-99); Potassium, Blood 3.6 mmol/L (3.5-5.5); Sodium, Blood 140 mmol/L (136-145); Total Protein, Blood 7.4 g/dL (6.4-8.2)
[2020-05-31] MEDS ORDERED: PANT40 PO (05:32)
== END 2020-05-31 05:45 | disposition home or self-care (01) ==
LOC: ER 04:19
PROVIDERS: Emergency Medicine
DX: R10.13 Epigastric pain (principal); R11.0 Nausea; F17.210 Nicotine dependence, cigarettes, uncomplicated; Z87.442 Personal history of urinary calculi
CPT/HCPCS: 36415; 71045; 76705; 80053; 83605; 83690; 85025; 93005; 93010; 96361; 96374; 96375; 99284-25; C9113; J1885; J2405; J7030

== ENCOUNTER 2022-03-21 14:15 | Emergency (ER) | payer OTHER ==
[~2022-03-21] VITALS: Ht 160 cm; Wt 54.4 kg
[~2022-03-21 14:15] MED LIST changes: +PANT40 PO
[2022-03-21 14:57] LABS: Source, Urine Clean Catch
[2022-03-21 15:01] LABS: BASOPHILS ABSOLUTE AUTO 0.03 K/mm3 (0.00-0.23); BASOPHILS PERCENT AUTO 0 % (0-2); EOSINOPHILS ABSOLUTE AUTO 0.09 K/mm3 (0.00-0.68); EOSINOPHILS PERCENT AUTO 1 % (0-6); Hematocrit 37.8 % (33.0-51.0); Hemoglobin 12.6 g/dL (11.5-16.0); IMMATURE GRAN ABSOLUTE AUTO 0.02 K/mm3 (0.00-0.10); IMMATURE GRAN PERCENT AUTO 0 % (0-1); LYMPHOCYTES ABSOLUTE AUTO 2.31 K/mm3 (0.84-5.20); LYMPHOCYTES PERCENT AUTO 19 % (21-46); MONOCYTES ABSOLUTE AUTO 0.53 K/mm3 (0.16-1.47); MONOCYTES PERCENT AUTO 5 % (4-13); Mean Corpuscular HGB 29.5 pg (26.0-34.0); Mean Corpuscular HGB Conc 33.3 g/dL (31.5-36.5); Mean Corpuscular Volume 89 fL (80-100); Mean Platelet Volume 10.4 fL (9.1-12.4); NEUTROPHILS ABSOLUTE AUTO 8.93 K/mm3 (1.96-9.15); NEUTROPHILS PERCENT AUTO 75 % (41-73); Platelet Count 251 K/mm3 (150-400); RDW Coefficient Variation 16.1 % (11.7-14.2); Red Blood Cell Count 4.27 M/mm3 (3.80-5.20); White Blood Cell Count 11.91 K/mm3 (4.00-11.30)
[2022-03-21 15:10] LABS: Appearance, Urine Cloudy (Clear); Bilirubin, Urine Neg (Neg); Blood, Urine 2+ (Neg); Glucose Qualitative, Urine Neg (Neg); Ketones, Urine Neg (Neg); Leukocyte Esterase, Urine 3+ (Neg); Nitrite, Urine Neg (Neg); Protein, Urine Neg (Neg); Specific Gravity, Urine 1.015 (1.003-1.022); Urobilinogen, Urine NORM (Normal)
[2022-03-21 15:46] LABS: Color, Urine Pale Yellow (P-Yellow)
[2022-03-21 15:47] LABS: Amorphous Mod (0-Heavy)
[2022-03-21 15:48] LABS: Bacteria Mod /hpf; Squamous Epithelial Cells Few /hpf (Few); White Blood Cells, Urine 25-50 /hpf (0-5)
[2022-03-21 15:49] LABS: Mucus Light (0-Heavy)
[2022-03-21 15:52] LABS: Albumin, Blood 3.8 g/dL (3.4-5.0); Albumin/Globulin Ratio 1.1 (0.8-1.8); Bilirubin, Total 0.3 mg/dL (0.1-1.0); Bun/Creatinine Ratio 15.8 (12.0-20.0); Calcium, Blood 8.8 mg/dL (8.5-10.1); Creatinine, Blood 0.7 mg/dL (0.40-1.00); Globulin, Blood 3.5 g/dL (2.2-4.0); Potassium, Blood 3.9 mmol/L (3.5-5.5); Total Protein, Blood 7.3 g/dL (6.4-8.2)
== END 2022-03-21 16:28 | disposition left against medical advice (07) ==
LOC: ER 14:15
PROVIDERS: Physician Assistant
DX: R10.9 Unspecified abdominal pain (principal); R30.0 Dysuria; Z53.21 Procedure and treatment not carried out due to patient leaving prior to being seen by health care provider
CPT/HCPCS: 36415; 80053; 81001; 81025; 83690; 85025; 87086

== ENCOUNTER 2023-03-23 12:53 | Emergency (ER) | payer OTHER ==
[~2023-03-23] VITALS: Ht 165.1 cm; Wt 58.1 kg
[2023-03-23 13:00] VITALS: BP 127/90
[2023-03-23] MEDS ORDERED: Amoxicillin500 MG PO (13:04)
[2023-03-23] MEDS ORDERED: ONDA4ODT MM (13:04)
[2023-03-23] MEDS ORDERED: HYDR1TAB94 PO (13:04)
== END 2023-03-23 13:05 | disposition home or self-care (01) ==
LOC: ER 12:53
DX: K04.7 Periapical abscess without sinus (principal); K02.9 Dental caries, unspecified; F17.210 Nicotine dependence, cigarettes, uncomplicated
CPT/HCPCS: 99282

== ENCOUNTER 2023-04-28 14:49 | Emergency (ER) | payer OTHER ==
[~2023-04-28] VITALS: Ht 160 cm; Wt 59.9 kg
[~2023-04-28 14:49] MED LIST changes: +Amoxicillin500 MG PO; +HYDR1TAB94 PO
[2023-04-28 14:59] VITALS: BP 121/81
[2023-04-28] MEDS ORDERED: Norco 5-325 Ta1 EACH PO (15:04)
== END 2023-04-28 15:25 | disposition home or self-care (01) ==
LOC: ER 14:49
DX: K08.89 Other specified disorders of teeth and supporting structures (principal); Z79.899 Other long term (current) drug therapy; F43.10 Post-traumatic stress disorder, unspecified; F17.210 Nicotine dependence, cigarettes, uncomplicated
CPT/HCPCS: 99282